=== PATIENT | female | born 1995 | race African-American/Black ===

== ENCOUNTER 2020-12-12 15:05 | Emergency (ER) | payer OTHER ==
[~2020-12-12] VITALS: Ht 160 cm; Wt 56.8 kg
[2020-12-12 15:09] VITALS: BP 126/63
== END 2020-12-12 16:21 | disposition home or self-care (01) ==
LOC: EMS 15:52
DX: Z20.822 Contact with and (suspected) exposure to COVID-19 (principal)
CPT/HCPCS: 99283; U0003